=== PATIENT | female | born 1950 | race Caucasian/White ===

== ENCOUNTER 2022-01-21 15:29 | Outpatient (CLI) | payer BC | END 2022-01-21 15:30 | disposition home or self-care (01) | LOC: BICMAMMO 15:29 | PROVIDERS: ATTEND Family Medicine | DX: Z12.31 Encounter for screening mammogram for malignant neoplasm of breast (principal) | CPT/HCPCS: 77063; 77067 ==

== ENCOUNTER 2023-02-03 13:29 | Outpatient (CLI) | payer BC | END 2023-02-03 13:30 | disposition home or self-care (01) | LOC: BICMAMMO 13:29 | PROVIDERS: ATTEND Family Medicine | DX: Z12.31 Encounter for screening mammogram for malignant neoplasm of breast (principal) | CPT/HCPCS: 77063; 77067 ==

== ENCOUNTER 2023-06-30 07:19 | Outpatient (CLI) | payer BC ==
[2023-06-30] MEDS ORDERED: Iopamidol 370 76% 100 ML VIAL ONE (11:06)
== END 2023-06-30 07:20 | disposition home or self-care (01) ==
LOC: CT 07:19
PROVIDERS: ATTEND Family Medicine
DX: K86.89 Other specified diseases of pancreas (principal); I31.39 Other pericardial effusion (noninflammatory)
CPT/HCPCS: 74170; 82565; Q9967